=== PATIENT | female | born 1965 | race Caucasian/White ===

== ENCOUNTER 2018-07-29 08:18 | Day surgery (SDC) | payer OTHER ==
[2018-07-29] MEDS ORDERED: DEXAMETHASONE SODIUM PHOSPHATE 10 MG/ML VIAL ONE (08:48)
[2018-07-29] MEDS ORDERED: SEVOFLURANE 250 ML LIQUID IH ONE (08:48)
[2018-07-29] MEDS ORDERED: diphenhydrAMINE HCL 50 MG/ML VIAL ONE (08:48)
[2018-07-29] MEDS ORDERED: ePHEDrine SULFATE 50 MG/1 ML IVP ONE (08:48)
[2018-07-29] MEDS ORDERED: ONDANSETRON HCL/PF 4 MG/ 2ML VIAL ONE (08:48)
[2018-07-29] MEDS ORDERED: PHENYLEPHRINE HCL 10 MG/1 ML ONE (08:48)
[2018-07-29] MEDS ORDERED: LIDOCAINE HCL 1% PF 300MG/30ML VIAL ONE (08:48)
[2018-07-29] MEDS ORDERED: SCOPOLAMINE HYDROBROMIDE 1.5MG/72HR PATCH TD ONE ×2 (08:48→11:46)
[2018-07-29] MEDS ORDERED: BUPIV. HCL 0.25% (2.5MG/ML)/EPI. (1:200,000) PF 30 ML VIAL IJ ONE (08:48)
[2018-07-29] MEDS ORDERED: MIDAZOLAM HCL 2 MG/2 ML VIAL ONE (08:48)
[2018-07-29] MEDS ORDERED: KETOROLAC TROMETHAMINE 30 MG/1ML VIAL ONE (08:48)
[2018-07-29] MEDS ORDERED: FAMOTIDINE 20 MG/2 ML VIAL ONE ×2 (08:48→11:47)
[2018-07-29] MEDS ORDERED: fentaNYL CITRATE/PF 100 MCG/2 ML INJ. ONE ×2 (08:48→14:34)
[2018-07-29] MEDS ORDERED: SODIUM CHLORIDE IRRIG SOLUTION 3,000 ML IRRIG.SOLN IR ONE (08:48)
[2018-07-29] MEDS ORDERED: LACTATED RINGERS 1,000 ML IV.SOLN IV ONE ×2 (08:48)
[2018-07-29] MEDS ORDERED: ENOXAPARIN SODIUM 40 MG/0.4 ML DISP.SYRIN SQ ONE ×2 (08:48→11:52)
[2018-07-29] MEDS ORDERED: ROCURONIUM BROMIDE 10 MG/ML 5ML VIAL ONE (08:48)
[2018-07-29] MEDS ORDERED: SUGAMMADEX SODIUM 200 MG/2 ML VIAL IV ONE (08:48)
[2018-07-29] MEDS ORDERED: PROPOFOL 200 MG/20 ML VIAL IV ONE (08:48)
[2018-07-29] MEDS ORDERED: ceFAZolin SODIUM 1 GM VIAL ONE (08:48)
[2018-07-29] MEDS ORDERED: LEVALBUTEROL NEB 1.25 MG/3 ML VIAL.NEB IH ONE (11:46)
[2018-07-29] MEDS ORDERED: LACTATED RINGERS 1,000 ML IV ONE (11:46)
== END 2018-07-29 15:12 | disposition other institution (70) ==
LOC: OPSURG 08:18
PROVIDERS: ATTEND Surgery
DX: E66.01 Morbid (severe) obesity due to excess calories (principal); Z68.43 Body mass index [BMI] 50.0-59.9, adult; I10 Essential (primary) hypertension; K21.9 Gastro-esophageal reflux disease without esophagitis; G47.30 Sleep apnea, unspecified
CPT/HCPCS: 43235; 43775; 88305; A9270; J0690; J1200; J1650; J1885; J2001; J2250; J2370; J2405; J2704; J3010; J7120; J7614

== ENCOUNTER 2018-07-29 15:13 | Inpatient (IN) | payer OTHER ==
[2018-07-29] MEDS ORDERED: PROMETHAZINE HCL 25 MG in 0.9 % SODIUM CHLORIDE 50 ML IV PRN (15:20)
[2018-07-29] MEDS ORDERED: MORPHINE SULFATE 4 MG/ML VIAL IVP PRN (15:20)
[2018-07-29] MEDS ORDERED: ONDANSETRON HCL/PF 4 MG/ 2ML VIAL IVP PRN (15:20)
[2018-07-29] MEDS ORDERED: 0.9 % SODIUM CHLORIDE 1,000 ML IV ONE (15:27)
[2018-07-29] MEDS ORDERED: TIZANIDINE HCL 4 MG TABLET PO PRN (16:14)
--- NOTE | 2018-07-29 16:18 | History and Physical Report ---
History of Present Illnes - History of Present Illness Reason for Visit: Gastric sleeve History of Present Illness: Patient underwent gastric sleeve today after failing many attempts at weight loss with diet and exercise. She did well during the surgery but will be admitted to Acute for IV hydration and IV antiemetics and IV pain meds. - Past Medical History Cardiac: HTN, Hyperlipidemia Pulmonary: Sleep Apnea (CPAP at 4) ELECTRICAL EQUIPMENT TECHNICIAN: Migraine Gastrointestinal: GERD, Other (Chronic pancreatitis) Heme/Onc: Anemia NOS Psych: Bipolar, Depression Musculoskeletal: Chronic low back pain, Osteoarthritis Endocrine: Diabetes ("PRe DM" but A1C is 7.0 on 07-20-18), Hypothyroidism, obesity - Past Surgical History Past Surgical History: Cholecystectomy, Hysterectomy, Tonsillectomy, Other (Ectopic ) - Past Family History Mother Family History: DM, Hyperlipidemia, Hypertension Father Family History: Cancer, Hypertension - Past Social History Smoke: No Alcohol: None Drugs: None Lives: Alone Domestic Violence: Negative - Health Maintenance Health Maintenance: Cholesterol, Pneumococcal Vaccine, Mammogram, Colonoscopy Influenza Vaccine: Current for this Influenza Season Pneumonia Vaccine: Yes Resuscitation Status: Resusciation Status Resuscitation Status Full Code Review of Systems - Review of Systems Constitutional: negative: Fever, Weakness Eyes: negative: pain ENT: negative: Ear Pain, Nose Congestion Respiratory: negative: Cough, Shortness of Breath Cardiovascular: negative: Chest Pain Gastrointestinal: negative: Nausea, Vomiting, Abdominal Pain, Diarrhea, Constipation Genitourinary: negative: Dysuria Musculoskeletal: negative: Neck Pain Skin: negative: Rash Neurological: negative: Weakness - Medications/Allergies Allergies/Adverse Reactions: Allergies Allergy/AdvReac Type Severity Reaction Status Date / Time adhesive Allergy Verified 07/29/18 15:51 azithromycin Allergy Verified 07/29/18 15:51 hydrocodone Allergy Verified 07/29/18 15:51 oxycodone Allergy Verified 07/29/18 15:51 Home Medications: Home Medications Atorvastatin Calcium 40 mg PO HS 07/29/18 Cetirizine HCl [24Hour Allergy] 10 mg PO DAILY 07/29/18 Esomeprazole Magnesium [Nexium] 40 mg PO HS 07/29/18 Lisinopril [Zestril] 5 mg PO DAILY 07/29/18 Ondansetron [Zuplenz] 4 mg SL DAILY 07/29/18 Sertraline HCl [Zoloft] 50 mg PO DAILY 07/29/18 Temazepam [Restoril] 30 mg PO HS 07/29/18 Tizanidine HCl [Zanaflex] 4 mg PO PRN PRN 07/29/18 Current Inpatient Medications: Current Inpatient Medications Cefazolin Sodium/Dextrose (Ancef 1 Gm/50 Ml-Dextrose) 1 gm IV Q8H [facility] Stop: 07/30/18 05:01 Famotidine (Pepcid) 20 mg IVP BID [facility] Stop: 08/02/18 20:59 Sodium Chloride (Normal Saline) 1,000 mls @ 150 mls/hr IV Q8H [facility] Promethazine HCl 25 mg/ Sodium (Chloride) 51 mls @ 200 mls/hr IV Q6 PRN PRN Reason: Nausea / Vomiting Stop: 08/02/18 15:19 Ketorolac Tromethamine (Toradol) 30 mg IVP Q6 PRN PRN Reason: For Mild Pain Stop: 08/02/18 15:19 Miscellaneous (Chem Sticks) 1 each MC Q6H [facility] Morphine Sulfate (Morphine Sulfate) 2 mg IVP Q2 PRN PRN Reason: MODERATE PAIN Stop: 08/02/18 15:19 Morphine Sulfate (Roxanol) 5 mg PO Q4H PRN PRN Reason: PAIN Ondansetron HCl (Zofran) 4 mg IVP Q6H PRN PRN Reason: Nausea / Vomiting Stop: 08/02/18 15:19 Exam - Exam General: Alert, Oriented to Person, Oriented to Place, Oriented to Time, Cooperative, No acute distress, Morbidly Obese HEENT: Atraumatic, PERRLA, EOMI, Mouth Mucous membr. moist/[place], Nose Mucous membr. moist/[place] Neck: Normal Range of Motion Lungs: Clear to auscultation, Normal air movement, Speaks full Sentences Cardiovascular: Regular rate Abdomen: Normal bowel sounds, Soft, No tenderness, Other (Bandages C/D/I), Decreased Bowel Sounds Integumentary: Normal Extremities: No edema Neurological: Normal gait, Normal speech, Strength Equal Bilat Psych/Mental Status: Mental status NL, Mood NL, Appropriate Affect, Intact Judgment Assessment/Plan - Assessment/Plan (1) S/P laparoscopic sleeve gastrectomy Status: Acute Current Visit: Yes Plan: Patient will be admitted to Acute care for IV hydration, IV antiemetics, and IV pain control. With her hydrocodone and oxycodone allergies, will use morphine. I have written her a script for morphine on discharge. IS, frequent ambulation, SCD and lovenox will be used. (2) HLD (hyperlipidemia) Status: Acute Current Visit: Yes Qualifiers: Hyperlipidemia type: mixed hyperlipidemia Qualified Code(s): E78.2 - Mixed hyperlipidemia Plan: Hold statin while here. PLan to resume on discharge. (3) HTN (hypertension) Status: Acute Current Visit: Yes Qualifiers: Hypertension type: essential hypertension Qualified Code(s): I10 - Essential (primary) hypertension Plan: HOld lisinopril. Watch BP. May be able to stop on discharge. (4) Insomnia Status: Acute Current Visit: Yes Qualifiers: Insomnia type: primary Qualified Code(s): F51.01 - Primary insomnia Plan: Will hold temazepam for now until we see how the IV narcotics are going to affect her. (5) Chronic GERD Status: Acute Current Visit: Yes Plan: Hold nexium as patient is getting IV pepcid. May need to start sooner than on D/C. (6) Diabetes Status: Acute Current Visit: Yes Qualifiers: Diabetes mellitus type: type 2 Diabetes mellitus regional intermodal truck driver insulin use: without regional intermodal truck driver use Diabetes mellitus complication status: without complication Qualified Code(s): E11.9 - Type 2 diabetes mellitus without complications Plan: This is a new diagnosis for patient as she thought she was a "prediabetic." However A1C of 7 changes that. Watch BS. She is on no meds at this time. I suspect the surgery will cure this for her. (7) MARJAN (obstructive sleep apnea) Status: Acute Current Visit: Yes Plan: Continue CPAP that patient brought. (8) Bipolar 2 disorder Status: Acute Current Visit: Yes Plan: ONly on sertraline. Continue. (9) Allergic rhinitis Status: Chronic Current Visit: No Qualifiers: Allergic rhinitis trigger: unspecified Allergic rhinitis seasonality: unspecified Qualified Code(s): J30.9 - Allergic rhinitis, unspecified Plan: Hold antihistamine. May resume on d/c. VTE Assessment - RISK FACTOR SCORE VTE RISK FACTOR SCORES: AGE 40-60 YEARS, OBESITY, MAJOR SURGERY/ANESTHESIA TIME > 1 HOUR - RISK VTE HIGH RISK: SCORE OF 3-4 (RISK PROXIMAL DVT 4-8%) PROPHYLAXIS NEEDED
[2018-07-29] MEDS: 0.9 % SODIUM CHLORIDE 1,000 ML IV SCH ×2 (16:45→23:54)
[2018-07-29 17:39] VITALS: BMI 62.9
[2018-07-29] MEDS ORDERED: 0.9 % SODIUM CHLORIDE 50 ML IV ONE (21:21)
[2018-07-29] MEDS: FAMOTIDINE 20 MG/2 ML VIAL IVP SCH (21:31)
[2018-07-30] MEDS: MORPHINE SULFATE 10MG/0.5ML ORAL SOLN UD CUP PO PRN ×2 (01:25→13:48)
[2018-07-30] MEDS: KETOROLAC TROMETHAMINE 30 MG/1ML VIAL IVP PRN ×3 (01:46→20:01)
[2018-07-30] MEDS: 0.9 % SODIUM CHLORIDE 1,000 ML IV SCH ×2 (08:12→15:36)
[2018-07-30 08:24] LABS: BASOPHILS % 0.3 (0.0-1.5); EOSINOPHILS % 0.7 % (0.0-6.8); MEAN CORPUSCULAR HEMOGLOBIN 23.5 pg (28.0-34.0); MONOCYTES % 4.9 % (0.0-11.0); NEUTROPHILS # 7.3 # k/uL (1.4-7.7)
[2018-07-30] MEDS: SERTRALINE HCL 50 MG TABLET PO SCH (09:03)
[2018-07-30] MEDS: FAMOTIDINE 20 MG/2 ML VIAL IVP SCH ×2 (09:10→20:00)
--- NOTE | 2018-07-30 11:25 | Inpatient Progress Note ---
Subjective - Required Recertification Statement I anticipate X number of days because-include discharge plan: 1 - Review of Systems Events since last encounter: Lianet is doing well. She had some pain yesterday, but it is improved today. She has ambulated all around the unit without any problems. I did note that her MCV was low at 73 even though she is not anemic (Hgb is 12.0 this morning), and discussed with her that she may be low on iron. She will follow up with Dr. Puente (PCP) about this on discharge. General: Denies: Chills, Night Sweats HEENT: Denies: Head Aches Pulmonary: Denies: Dyspnea Cardiovascular: Denies: Chest Pain Gastrointestinal: Abdominal Pain (mild). Denies: Nausea, Vomiting Genitourinary: Denies: Dysuria Musculoskeletal: Denies: Neck Pain, Shoulder Pain Neurological: Denies: Weakness, Change in Speech, Confusion Objective - Exam Vitals and I&O: Vital Signs Temp 98.8 F 07/30/18 09:09 Pulse 100 H 07/30/18 09:09 Resp 18 07/30/18 10:00 BP 137/53 07/30/18 09:09 Pulse Ox 96 07/30/18 10:00 Intake & Output 07/29/18 07/29/18 07/30/18 11:59 23:59 11:59 Intake Total 450 120 Output Total 450 450 Balance 0 -330 Weight 166.378 kg Intake: IV 450 Left Hand 450 Oral 120 Output: Urine 400 400 Emesis 50 50 Other: Voiding Method Toilet Toilet # Voids 3 # Bowel Movements 0 General: Alert, Oriented to Person, Oriented to Place, Oriented to Time HEENT: Atraumatic, PERRLA, EOMI Neck: Supple, Other Lungs: Clear to auscultation Cardiovascular: Regular rate Abdomen: Other (Abdominal wound are all dry. ) Extremities: No clubbing, No cyanosis Skin: Normal, [place], Warm, Dry Neurological: Normal speech Psych/Mental Status: Mental status NL, Mood NL - Results Results: Laboratory Results WBC 9.20 K/ul (4.00-12.00) 07/30/18 06:00 RBC 5.10 M/ul (3.90-5.20) 07/30/18 06:00 Hgb 12.0 g/dL (12.0-16.0) 07/30/18 06:00 Hct 37.3 % (34.5-46.5) 07/30/18 06:00 MCV 73.0 fl (80.0-100.0) L 07/30/18 06:00 MCH 23.5 pg (28.0-34.0) L 07/30/18 06:00 MCHC 32.2 g/dL (30.0-36.0) 07/30/18 06:00 RDW 17.0 % (11.3-14.3) H 07/30/18 06:00 Plt Count 221 K/mm3 (130-400) 07/30/18 06:00 Neut % (Auto) 79.4 % (39.0-79.0) H 07/30/18 06:00 Lymph % (Auto) 14.7 % (16.0-50.0) L 07/30/18 06:00 [place] % (Auto) 4.9 % (0.0-11.0) 07/30/18 06:00 Eos % (Auto) 0.7 % (0.0-6.8) 07/30/18 06:00 Baso % (Auto) 0.3 (0.0-1.5) 07/30/18 06:00 Neut # (Auto) 7.3 # k/uL (1.4-7.7) 07/30/18 06:00 Lymph # (Auto) 1.4 # k/uL (0.6-4.0) 07/30/18 06:00 [place] # (Auto) 0.5 # k/uL (0.0-0.9) 07/30/18 06:00 Eos # (Auto) 0.1 # k/uL (0.0-0.6) 07/30/18 06:00 Baso # (Auto) 0.0 # k/uL (0.0-0.5) 07/30/18 06:00 Assessment/Plan - Assessment/Plan (1) S/P laparoscopic sleeve gastrectomy Status: Acute Current Visit: Yes Assessment: Advance diet to Bariatric Stage 1 from ice chips. (2) Bipolar 2 disorder Status: Acute Current Visit: Yes Assessment: Continue sertraline. She is not currently on a mood stabilizer (3) Chronic GERD Status: Acute Current Visit: Yes Assessment: Continue famotidine (4) HTN (hypertension) Status: Acute Current Visit: Yes Qualifiers: Hypertension type: essential hypertension Qualified Code(s): I10 - Essential (primary) hypertension Assessment: BP is well controlled (5) MARJAN (obstructive sleep apnea) Status: Acute Current Visit: Yes Assessment: Continue CPAP
[2018-07-31] MEDS: 0.9 % SODIUM CHLORIDE 1,000 ML IV SCH ×2 (00:16→06:18)
--- NOTE | 2018-07-31 08:17 | Discharge Summary ---
Discharge Summary - Discharge Sumary History of Present Illness: Patient underwent gastric sleeve today after failing many attempts at weight loss with diet and exercise. She did well during the surgery but will be admitted to Acute for IV hydration and IV antiemetics and IV pain meds. Condition at Discharge: Stable Home Medications: Ambulatory Orders Medication Instructions Recorded Atorvastatin Calcium 40 mg PO HS 07/29/18 Cetirizine HCl [24Hour Allergy] 10 mg PO DAILY 07/29/18 Esomeprazole Magnesium [Nexium] 40 mg PO HS 07/29/18 Lisinopril [Zestril] 5 mg PO DAILY 07/29/18 Ondansetron [Zuplenz] 4 mg SL DAILY 07/29/18 Sertraline HCl [Zoloft] 50 mg PO DAILY 07/29/18 Temazepam [Restoril] 30 mg PO HS 07/29/18 Tizanidine HCl [Zanaflex] 4 mg PO PRN PRN 07/29/18 Consultations this Visit: None Procedures this Visit: Other (S/P gastric sleeve) Allergies/Adverse Reactions: Allergies Allergy/AdvReac Type Severity Reaction Status Date / Time adhesive Allergy Verified 07/29/18 15:51 azithromycin Allergy Verified 07/29/18 15:51 hydrocodone Allergy Verified 07/29/18 15:51 oxycodone Allergy Verified 07/29/18 15:51 Discharge Summary: Patient is a 53-year-old white female that underwent the gastric sleeve procedure and has done very well. She has been very cooperative with her care by ambulating frequently, using her incentive spirometer, and wearing her SCDs while in bed. She has been compliant with her diet during hospitalization. She is having minimal discomfort at this time and minimal nausea- she has is passing gas and belching. She is aware of discharge instructions and what she can and cannot do post surgical- she is aware of the strict diet she must follow to decrease discomfort and have success after procedure. She has family support and daughter will be taking her home- medications written by surgeon given to patient. She feels ready to go home. Hospital Course: Patient received pain medications, antiemetics, and IVF and was transitioned to oral. She has been up ambulating and using incentive spirometer. - Final Diagnosis (1) S/P laparoscopic sleeve gastrectomy Problems: Incision without redness or drainage, positive bowel sounds, minimal discomfort, belching and flatus, no extremity pain or edema Right or Left: Right (2) Bipolar 2 disorder Problems: Stable- continue home medications Right or Left: Right (3) Chronic GERD Problems: Continue Nexium at home Right or Left: Right (4) Diabetes Problems: Have PCP follow up on diabetes- treatment may not be needed after surgery Right or Left: Right (5) HLD (hyperlipidemia) Problems: Continue home medication on discharge Right or Left: Right (6) HTN (hypertension) Problems: Hold blood pressure medication- take blood pressure daily- keep log and take to follow up appointment Right or Left: Right (7) Insomnia Problems: Stable- continue home treatment Right or Left: Right (8) MARJAN (obstructive sleep apnea) Problems: Continue with home treatment using cPAP Right or Left: Right
[2018-07-31 08:23] VITALS: BP 157/61
[2018-07-31] MEDS: SERTRALINE HCL 50 MG TABLET PO SCH (09:43)
[2018-07-31] MEDS ORDERED: 0.9 % SODIUM CHLORIDE 50 ML IV ONE (10:48)
[2018-07-31] MEDS: FAMOTIDINE 20 MG/2 ML VIAL IVP SCH (11:09)
[2018-07-31] MEDS: KETOROLAC TROMETHAMINE 30 MG/1ML VIAL IVP PRN (11:56)
== END 2018-07-31 12:30 | disposition home or self-care (01) | DRG 641 ==
LOC: SOUTH 15:13
PROVIDERS: ADMIT Nurse Practitioner Family; ATTEND Nurse Practitioner Family
DX: E66.01 Morbid (severe) obesity due to excess calories (principal); E11.9 Type 2 diabetes mellitus without complications; I10 Essential (primary) hypertension; G47.33 Obstructive sleep apnea (adult) (pediatric); F51.01 Primary insomnia; J30.9 Allergic rhinitis, unspecified
CPT/HCPCS: 85025; 97116; 97161; 97165; J1885; J2270; J2405; J2550; J7030; S0028; 99222; 99231; 99238